=== PATIENT | female | born 1950 | race Caucasian/White ===

== ENCOUNTER 2024-09-24 07:55 | Day surgery (SDC) | payer MEDICARE, SELFPAY ==
[2024-09-22 09:57] VITALS: BMI 25.6
--- OUTSIDE RECORDS SUMMARY | 2024-09-24 07:58 | XMS_ITS | Data Portability ---
Author Organization [facility], [facility] Address [address] [place] [address] Care Team Providers Care Auto Technician Mechanic Name Role Phone LEEANN JUAN Mortgage Processor ARMIDA THIBODEAUX Plastic/Reconstructive Surgeon BARAK WANG OTHER EILEEN NAVA OTHER EHSAN ESPINOSA Primary Care Provider Assessment No assessment recorded. Plan of Treatment Reminders Order Date Submit Date Provider Last Modified By Organization Details Last Modified Time Details Appointments Medicare Return Wellness Visit 2024 10:30A M EHSAN ESPINOSA, [place] Not available Not available Not available Lab None recorded. Referral gastroent erologist referral - hx of diverticu litis December 2023, last colonosco py 2015 and unable to tolerate the prep, please eval and tx/ 2023 024 DIDIER Alexander MD, [address] [place] [address], [address], 06/12/2024 16:11:16 Procedures None recorded. Surgeries None recorded. Imaging None recorded. Medication Orders olmesarta n 5 mg tablet 2023 024 [email or web address] 9 [facility], [address] [place], [address], 05/14/2024 15:26:27 hydrochlo rothiazid e 25 mg tablet 2023 024 [email or web address] 9 [facility], [address] [place], [address], 08/21/2024 10:19:22 hydrochlo rothiazid e 12.5 mg tablet 2024 025 DIDIER [facility], [address] [place], [address], 08/21/2024 10:12:58 simvastat in 20 mg tablet 2024 025 [place] [facility], [address] [place], [address], 08/21/2024 10:12:58 Patient TargetsNo targets recorded. Patient Instructions Encounter Date Encounter Id Patient Instructions Last Modified By Organization Details Last Modified Time 01/31/2024 [id number] [facility] serves as the focal point for all health care services the patient needs. [email or web address] Not available 01/31/2024 10:02:40 05/01/2024 [id number] I am aware of the inpatient facility discharge medications, the medication list above has been reconciled with those medications and reflects my understanding of an up to date medication list for this patient. [email or web address] Not available 05/01/2024 08:32:26 Reason for Referral Utility Operator Referral for Diverticulitis of colon hx of diverticulitis December 2023, last colonoscopy 2015 and unable to tolerate the prep, please eval and tx/ Referring Physician: Abby Sales, Family Medicine, Encounter Date: 01/31/2024 Results Created Date Observation Date Name Description Value Unit Range Abnormal Flag Note LastModifiedBy Organization Detail LastModifiedTime 01/21/2001/21/2024 BASIC METAB OLIC PANEL glucose 112 mg/dL 70-100 high Not Available [address], [address], 01/21/2024 12:04:33 01/21/20 24 01/21/2024 BASIC METAB OLIC PANEL BUN 14 mg/dL 7-18 Not Available [address], [address], 01/21/2024 12:04:33 01/21/20 24 01/21/2024 BASIC METAB OLIC PANEL creatinine 1.0 mg/dL 0.8-1. 3 Not Available [address], [address], 01/21/2024 12:04:33 01/21/20 24 01/21/2024 BASIC METAB OLIC PANEL B/C 14.0 ratio Not Available [address], [address], 01/21/2024 12:04:33 01/21/20 24 01/21/2024 BASIC METAB OLIC PANEL GFR >=60ML /MIN mL/mi n normal >=60m L/min - Gill l or midly reduc ed <60mL /min- Decre ased kidne y funct ion <15mL /min - Kidne y failu re [facility] calcu lates estim ated Glome rular Filtr ation Rate (eGFR ) using the Chron ic Kidne y Disea se Epide miolo gy Colla borat ion (CKD- EPI) Equat ion (Danyell sosa et. al 2020) as recom gordo d by the Natio nal Kidne y Found ation . eGFR is based on age, serum creat inine , and sex. CKD-E PI does not calcu late eGFR by race, does not apply to child benito (age <18 years ), and shoul d not be used in pregn lorrie. Not Available [address], [address], 01/21/2024 12:04:33 01/21/20 24 01/21/2024 BASIC METAB OLIC PANEL sodium 138 mmol/ L 136-14 5 Not Available [address], [address], 01/21/2024 12:04:33 01/21/20 24 01/21/2024 BASIC METAB OLIC PANEL potassium 3.9 mmol/ L 3.5-5. 1 Not Available [address], [address], 01/21/2024 12:04:33 01/21/20 24 01/21/2024 BASIC METAB OLIC PANEL chloride 98 mmol/ L 96-107 Not Available [address], [address], 01/21/2024 12:04:33 01/21/20 24 01/21/2024 BASIC METAB OLIC PANEL anion gap 12.6 5.0-15 .0 Not Available [address], [address], 01/21/2024 12:04:33 01/21/20 24 01/21/2024 BASIC METAB OLIC PANEL CO2 27 mmol/ L 21-32 Not Available [address], [address], 01/21/2024 12:04:33 01/21/20 24 01/21/2024 BASIC METAB OLIC PANEL calcium 9.5 mg/dL 8.5-10 .3 Not Available [address], [address], 01/21/2024 12:04:33 01/21/20 24 01/21/2024 LIPID PANEL cholesterol 167 mg/dL <200 mg/dl Kristyn able 200-2 39 mg/dl Borde rline High >240 mg/dl High Not Available [address], [address], 01/21/2024 12:04:35 01/21/20 24 01/21/2024 LIPID PANEL triglyceride s 61 mg/dL <150 mg/dL Gill l 150-1 99 mg/dL Borde rline High 200-4 99 mg/dL High >500 mg/dL Very High Not Available [address], [address], 01/21/2024 12:04:35 01/21/20 24 01/21/2024 LIPID PANEL direct HDL 82 mg/dL <40 mg/dl - Major Risk for CHD >60 mg/dl - Negat jace Risk for CHD Not Available [address], [address], 01/21/2024 12:04:35 01/21/20 24 01/21/2024 DIREC T LDL direct LDL 65 mg/dL RISK CATEG ORY LDL GOAL _ CHD or CHD Risk Equiv alent s <100 mg/dl (10-y ear risk >20%) 2+ Risk Facto rs <130 mg/dl (10-y ear risk <= 20%) 0-1 Risk Facto r? <160 mg/dl ? Almos t all peopl e with 0-1 risk facto r have a 10 year risk <10%, thus 10 year risk asses ment in peopl e with 0-1 risk facto r is not neces rober. Not Available [address], [place], [address], 01/21/2024 12:04:36 04/17/20 24 04/22/2024 ANATO AIDA PATHO LOGY path report [facility] [address] [facility] [place] [address] Lab Direc tor: Brianda galeas MD Surgi joseph Patho logy Repor t Acces raisa #: [id number] FINAL PATHO LOGIC DIAGN OSIS: SIGMO ID COLON , COLEC NATASHA: Diver ticul osis with acute diver ticul itis. Marke d acute seros itis. Megan ctron icall y Filomena d Out By Lumin kurtis maradiaga MD By his/h er noemy gandhi above , the patho logis t guevara alexis as [facility] the Final Diagn osis certi fies that he/sh e has perso naty revie wed this case and confi rmed or corre cted the diagn osis. [facility] Free air SPECI MENS SUBMI TTED: A: SIGMO ID COLON , COLEC NATASHA GROSS DESCR IPTIO N SIGMO ID COLON , COLEC NATASHA: Recei debi in forma tae is a 11.7 cm in lengt h segme nt of large bowel with surro undin g peric olic fat. The seros a is gold h, levine and exhib its shagg y dull membr anous adhes ions and wallace- white fibro purul ent exuda te as well as levine-r ed hyper emic membr anous tissu e. The speci men is opene d to revea l numer ous scatt ered diver ticul a. The thick ness of the bowel wall varie s from 0.5 cm up to 0.7 cm. The colon ic circu mfere nce varie s from 3.4 cm up to 3.9 cm. The remai pamela colon ic mucos a is glist ening and levine-p ink with no aster s ident ified gross ly. Repre senta tive secti ons are submi tted as follo ws: A1-A4 : Repre senta tive secti ons of diver ticul a A5: Repre senta tive secti ons of levine-r ed hyper emic membr anous adhes ions Gross ed by: Francisco reddy, MHS, PA( CP) LT 024 Gross ing Staff : [id number] Sharri mendez Name: HAYES WEST RA : [id number] (Age: 73) Sex: F 4 Insti tutio n: [facility] Locat ion: [facility] ST2 Date of Opera tion: 2023 Date of Acces raisa: 2023 Repor cele: 024 13:53 Resul ts To: Eileen orlando MD, BA Megan Aponte MD, BS Not Available [facility] (Outpatient) [address] [place], [address], 04/22/2024 14:50:43 08/14/20 24 08/14/2024 BASIC METAB OLIC PANEL glucose 98 mg/dL 70-100 Not Available [address], [address], 08/14/2024 10:54:30 08/14/20 24 08/14/2024 BASIC METAB OLIC PANEL BUN 20 mg/dL 7-18 high Not Available [address], [address], 08/14/2024 10:54:30 08/14/20 24 08/14/2024 BASIC METAB OLIC PANEL creatinine 1.1 mg/dL 0.8-1. 3 Not Available [address], [address], 08/14/2024 10:54:30 08/14/20 24 08/14/2024 BASIC METAB OLIC PANEL B/C 18.2 ratio Not Available [address], [address], 08/14/2024 10:54:30 08/14/20 24 08/14/2024 BASIC METAB OLIC PANEL GFR 53.7 mL/mi n abnormal >=60m L/min - Gill l or midly reduc ed <60mL /min- Decre ased kidne y funct ion <15mL /min - Kidne y failu re [facility] calcu lates estim ated Glome rular Filtr ation Rate (eGFR ) using the Chron ic Kidne y Disea se Epide miolo gy Colla borat ion (CKD- EPI) Equat ion (Danyell r et. al 2020) as recom gordo d by the Natio nal Kidne y Found ation . eGFR is based on age, serum creat inine , and sex. CKD-E PI does not calcu late eGFR by race, does not apply to child benito (age <18 years ), and shoul d not be used in pregn lorrie. Not Available [address], [address], 08/14/2024 10:54:30 08/14/20 24 08/14/2024 BASIC METAB OLIC PANEL sodium 144 mmol/ L 136-14 5 Not Available [address], [address], 08/14/2024 10:54:30 08/14/20 24 08/14/2024 BASIC METAB OLIC PANEL potassium 4.7 mmol/ L 3.5-5. 1 Not Available [address], [address], 08/14/2024 10:54:30 08/14/20 24 08/14/2024 BASIC METAB OLIC PANEL chloride 106 mmol/ L 96-107 Not Available [address], [address], 08/14/2024 10:54:30 08/14/20 24 08/14/2024 BASIC METAB OLIC PANEL anion gap 10.3 5.0-15 .0 Not Available [address], [address], 08/14/2024 10:54:30 08/14/20 24 08/14/2024 BASIC METAB OLIC PANEL CO2 28 mmol/ L 21-32 Not Available [address], [address], 08/14/2024 10:54:30 08/14/20 24 08/14/2024 BASIC METAB OLIC PANEL calcium 9.4 mg/dL 8.5-10 .3 Not Available [address], [address], 08/14/2024 10:54:30 08/14/20 24 08/14/2024 LIPID PANEL cholesterol 197 mg/dL <200 mg/dl Kristyn able 200-2 39 mg/dl Borde rline High >240 mg/dl High Not Available [address], [address], 08/14/2024 10:54:32 08/14/20 24 08/14/2024 LIPID PANEL triglyceride s 62 mg/dL <150 mg/dL Gill l 150-1 99 mg/dL Borde rline High 200-4 99 mg/dL High >500 mg/dL Very High Not Available [address], [address], 08/14/2024 10:54:32 08/14/20 24 08/14/2024 LIPID PANEL direct HDL 94 mg/dL <40 mg/dl - Major Risk for CHD >60 mg/dl - Negat jace Risk for CHD Not Available [address], [address], 08/14/2024 10:54:32 08/14/20 24 08/14/2024 LDL - CALCU LATED LDL - calculated 91 RISK CATEG ORY LDL GOAL _ CHD or CHD Risk Equiv alent s <100 mg/dl (10-y ear risk >20%) 2+ Risk Facto rs <130 mg/dl (10-y ear risk <= 20%) 0-1 Risk Facto r? <160 mg/dl ? Almos t all peopl e with 0-1 risk facto r have a 10 year risk <10%, thus 10 year risk asses ment in peopl e with 0-1 risk facto r is not morgan rober. Not Available [address], [address], 08/14/2024 10:54:33 01/03/20 24 01/03/2024 CT, angio gram, chest , w/ contr ast No observ ation record ed. [email or web address] Not Available 05/2024 13:19:45 01/08/20 24 01/08/2024 nc100 (tech order only) nc stres s test with nucle ar imagi ng Table format ting from the origin al result was not includ ed. Images from the origin al result were not includ ed. Result Report Garcia t Name: KyungTalita isbell Class: Outpat ient Techno logist : Ehsan Mcgovern ng Prov: Lan Durham, Ila gutierrez Primar y Care Physic kelsie: Ila Durham Diagno sis: Chest pain, unspec ified type [R07.9 (ICD-1 0-CM)] Proced ure(s) Perfor med: NC Stress Result for Nuclea r Stress Test Exam Date and Time: 2023 10:08 AM Access ion #: [id number] Result Status : Final NC Stress Result for Nuclea r Stress Test: Garcia ashton Commun icatio n Not Releas ed Not seen Height : 5' 4 (2023) Weight : 159 lb (2023) Reason For Exam * Outsid e Radiol ogy Order Associ ated Diagno ses Chest pain, unspec ified type [R07.9 ] Stress Test Findin gs ECG Report : Testin g perfor med as a pharma cologi c study due to patihi ashton's report ed inabil ity to ambula te on treadm ill due to unstea diness 0.4 mg Regade noson (azeem can) given IV push over 10 second s as per protoc ol immedi ately follow ed by inject ion of Tc99m Sestam ibi by Rosalee nuclea r techno logist . 1. EKG - Baseli ne EKG showed sinus rhythm withou t any signif icant ST or T wave abnorm ality. Follow ing admini strati on of lexisc an there were no ECG change s meetin g criter ia for ischem ia 2. SYMPTO MS -Follo wing Lexisc an patien daisha develo ped 4/10 chest pressu re which she stated felt the same as her exerti onal sympto ms of concer n, this resolv ed sponta neousl y in a few minute s. Later patien t did develo p lighth eadedn ess in late recove ry period which resolv ed follow ing admini strati on of aminop hyllin e. 3. PHYSIO LOGY - Restin g HR was 80 bpm. After Lexisc an inject ion, HR 115 bpm. Blood pressu re: 124/78 at rest, 124/78 follow ing admini strati on of lexisc an, and 117/70 on discha rge from stress lab. 4. ARRHYT HMIAS - Occasi onal isolat ed PACs Conclu raisa - ECG portio n of nuclea r stress test withou t ECG change s meetin g criter ia for ischem ia. She did have sympto ms kimberly santiago for angina . Nuclea r images pendin g and will be report ed mis quarles. See attach ed stress report for full detail sDelphine Fery, CRYPTOGRAPHIC MACHINE OPERATOR with Dr. Pamela younger Stress Findin gs The restin g heart rate was 80 BPM. The restin g BP was 115/70 mmHg. A peak heart rate of 110 BPM was achiev ed. Respon se to Stress The patien t exerci sed for minute s and second s, achiev ing 1.0 METS at peak exerci se. Baseli ne blood pressu re was 115/70 mmHg, and baseli ne heart rate was 80 bpm. The patien t achiev ed a peak heart rate of 110 bpm, which is% of their maximu m predic cele heart rate. Interp retati on Summar y Impres raisa: Negati ve ECG portio n of the stress test for revers ible ischem ia. Await nuclea r images . Stress Measur ements Max Stress Vitals Max BP Systol ic 140 mmHg Max BP Diasto lic 70 mmHg Stress Measur ements Restin g Vitals Restin g HR 80 BPM Restin g BP Systol ic 115 mmHg Restin g BP Diasto lic 70 mmHg Peak Stress Vitals Peak HR 110 BPM Max Stress Vitals Max HR 115 BPM Max BP Systol ic 140 mmHg Max BP Diasto lic 70 mmHg Exerci se Data Peak METS 1 METS Stress Vitals ( 9:06 AM-- 10:08 AM) Stress Test Row Name 09:16: 58 09:39: 42 09:40: 42 09:41: 42 09:54: 03 Phase of Stress Test ? Infusi on Infusi on Post Infusi on Post Infusi on HR 86 bpm 79 bpm 110 bpm 114 bpm ? BP ? 124/78 ? 124/78 117/70 Stage ? Dose 1 Dose 1 ? ? Speed 0 mph 0 mph 0 mph 0 mph 0 mph METs ? 1 METs 1 METs 1 METs 1 METs Time in Stage 00:00: 00 00:00: 00 00:01: 00 00:01: 00 00:12: 21 Elevat ion 0 % 0 % 0 % 0 % 0 % Signed Electr onical ly signed by Koffi Tapia DO on 4 at 1029 EDT Balaji blair Physic joseph Physic kelsie Role Shante, Jace Armstrong, DIRECTOR OF COUNSELING Koffi Manrique DO Attend ing Cardio logist KHARME N LAN DEL CASTIL LO KHARME N LAN DEL CASTIL LO KHARME N LAN DEL CASTIL LO [facility] [address] [place] [address], [address], 01/09/2024 13:39:42 01/08/20 24 01/08/2024 nucle ar stres s test No observ ation record ed. [address], [address], 01/09/2024 13:39:43 01/08/20 24 01/08/2024 nc myoca rdial perfu raisa pharm acolo gic stres s multi ple COMPAR ESTHER: None HISTOR Y: Chest pain DOSE: 10.2 mCi of techne tium 99m sestam ibi intrav enousl y at rest and 32.4 mCi of techne tium 99m sestam ibi subseq uently in the day during pharma cologi c stress . SPECT images were obtain ed, gated at stress . FINDIN GS: Left ventri cular cavity size is felt to be within normal limits . On the stress portio n of examin ation there is mildly to modera tely dimini shed tracer uptake in the anteri or wall and high septum extend ing from the midpor tion to the apical portio n of the ventri chucky which improv es but does not appear to comple tely normal ize on the rest images . Tracer distri bution throug hout the remain saul of the left ventri cular myocar dium is felt to be essent ially physio logic and unchan ged betwee n stress and rest. No focal abnorm ality of myocar dial thicke pamela was identi fied. The LVEF was calcul ated at 88% and the TID ratio at 1.07. IMPRES RAISA: Mild to modera te anteri or wall ischem ia consis tent with an LAD territ ory lesion , possib ly associ ated with an elemen t of underl cory scar which could be correl ated with any previo us known histor y of myocar dial infarc tion. The LVEF was calcul ated at greate r than 75%. POS CCDRAD BRDADM 04 Electr onical ly Signed by: Nathaniel Son on 024 12:36 PM Interp reted by: Nathaniel Son MD Signed by: Nathaniel Son MD 4 Final result Rest 10.2 mCi Sestam ibi Stress 32.4 mCi Sestam ibi Lexisc an KHARME N LAN DEL CASTIL LO KHARME N LAN DEL CASTIL LO KHARME N LAN DEL CASTIL LO [facility] [address] [place] [address], [address], 01/09/2024 13:39:43 01/08/20 24 01/08/2024 pharm acolo gic nucle ar stres s test No observ ation record ed. [address], [address], 01/09/2024 13:39:44 04/14/20 24 04/14/2024 CT, abdom en + pelvi s, w/ contr ast No observ ation record ed. [email or web address] [facility] (Emergency Room) [address] [place] [address], [address], 04/14/2024 20:12:52 Result Notes None recorded. Problems Name Problem SNOMED Code Status Onset Date Resolution Date Notes Provider Name and Address Organization Details Recorded Time Knee pain Active Archana Chau PA-C [address] [place], [place] [address], [address], [facility] 6 09:32:12 History of bilatera l mastecto my 854777142 Active 2019 Abby Sales MD [address] [facility] [place], [address], [facility] 0 12:42:40 Visual disturba nce 74606781 Active 2022 [facility] D/C Yasemin bray, [facility] 3 16:04:53 Ophthalm ic migraine 58508052 Active 2022 Abby Sales MD [address] [place] [address] [place], [address], [facility] 3 09:03:48 Hyperlip idemia 58644484 Active 2023 Abby Sales MD [address] [place] [address] [place], [address], [facility] 4 10:01:35 Sigmoid colectom y Active 2023 [facility], Dr.Michae hampton Due to diverticu litis Yasemin bray, [facility] 4 12:29:20 History of sigmoid colectom y 965794375 Active 2023 Abby Sales MD [address] [place] [address] [place], [address], [facility] 4 14:06:03 Mixed hyperlip idemia 493645119 Active 2005 Archana Chau PA-C [address] [place], [place] [address], [address], [facility] 6 09:32:12 Nervous system symptoms Completed 200307/05/2009 Archana Chau PA-C [address] [place], [place] [address], [address], [facility] 6 09:32:12 Cough 16908045 Completed 07/09/2013 Archana Chau PA-C [address] [place], [place] [address], [address], [facility] 6 09:32:12 Essentia l hyperten raisa 23900012 Active Archana Chau PA-C [address] [place], [place] [address], [address], [facility] 6 09:32:12 Hordeolu m 869835568 Completed 200407/05/2009 Archana Chau PA-C [address] [place], [place] [address], [address], [facility] 6 09:32:12 Urinary tract infectio us disease 37258697 Completed 07/09/2013 Archana Chau PA-C [address] [place], [place] [address], [address], [facility] 6 09:32:12 Current tear of lateral cartilag e AND/OR meniscus of knee Active 2006 Archana Chau PA-C [address] [place], [place] [address], [address], [facility] 6 09:32:12 Acute cystitis 03900826 Completed 200207/05/2009 Archana Chau PA-C [address] [place], [place] [address], [address], [facility] 6 09:32:12 Primary malignan t 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 88003628 Active 2002 Archana Chau PA-C [address] [place], [place] [address], [address], [facility] 6 09:32:11 Vitamin D deficien cy 73310636 Active Archana Chau PA-C [address] [place], [place] [address], [address], [facility] 6 09:32:11 Pure hypercho lesterol emia 916557429 Completed 200207/05/2009 Archana Chau PA-C [address] [place], [place] [address], [address], [facility] 6 09:32:12 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 Archana Chau PA-C [address] [place], [place] [address], [address], [facility] 6 09:32:12 Chalazio n 2177562 Completed 200507/05/2009 Archana Chau PA-C [address] [place], [place] [address], [address], [facility] 6 09:32:12 Disorder of skeletal system 65961903 Completed 200407/09/2013 Archana Chau PA-C [address] [place] [address] [place], [address], [facility] 6 09:32:12 Neoplasm of uncertai n behavior of skin 72692249 Completed 200407/09/2013 Archana Chau PA-C [address] [place], [place] [address], [address], [facility] 6 09:32:11 Lyme disease 08987959 Active 2005 Archana Chau PA-C [address] [place], [place] [address], [address], [facility] 6 09:32:11 Abdomina l pain 99270361 Completed 07/09/2013 Archana Chau PA-C [address] [place], [place] [address], [address], [facility] 6 09:32:12 Mammogra phy abnormal 503187321 Active 2005 Archana Chau PA-C [address] [place], [place] [address], [address], [facility] 6 09:32:12 Knee pain Completed 200607/09/2013 Archana Chau PA-C [address] [place], [place] [address], [address], [facility] 6 09:32:12 On examinat ion - a rash Completed 200107/05/2009 Archana Chau PA-C [address] [place], [place] [address], [address], [facility] 6 09:32:12 Menopaus al symptom 59629867 Completed 200307/09/2013 Archana Chau PA-C [address] [place], [place] [address], [address], [facility] 6 09:32:12 Osteocho ndropath y 73058338 Active Archana Chau PA-C [address] [place] [address] [place], [address], [facility] 6 09:32:12 Low back pain 136959244 Active 2003 Archana Chau PA-C [address] [place] [address] [place], [address], [facility] 6 09:32:12 Malaise and fatigue 627151616 Completed 200107/05/2009 Archana Chau PA-C [address] [place] [address] [place], [address], [facility] 6 09:32:12 Problem Notes None recorded. Procedures Surgical History Date Name Laterality Status Provider Name and Address Organization Details Recorded Time 024 Post hospital/SNF follow-up/Transit ional Care completed Machelle Odell MA [facility] 05/01/2024 08:32:26 024 excision of colon completed Abby Sales MD [address] [place] [address], [phone], [facility] 04/22/2024 19:35:48 024 [id number] completed Abby Sales MD [address] [place] [address], [phone], [facility] 01/31/2024 10:02:40 024 Asthma Control Test (12 + years old) completed Machelle Odell MA [facility] 01/31/2024 07:55:42 023 Medicare Wellness Visit completed Machelle Odell MA [facility] 07/26/2023 08:21:30 023 Asthma Control Test (12 + years old) completed Machelle Odell MA [facility] 07/26/2023 08:21:40 023 Post hospital/SNF follow-up/Transit ional Care completed Machelle Odell MA [facility] 04/24/2023 08:13:53 022 Medicare Wellness Visit completed Machelle Odell MA [facility] 07/03/2022 16:15:09 022 Alcohol use screening completed Machelle Odell MA [facility] 07/03/2022 16:15:09 022 Cardiovascular disease risk reduction counseling completed Machelle Odell MA [facility] 07/03/2022 16:15:09 Asthma Control Test (12 + years old) completed Machelle Odell [facility] 07/24/2022 09:58:32 022 Skin Tag Removal (up to 15) completed Abby Sales MD [address] [place] [address], [phone], [facility] 11/12/2021 13:46:06 Medicare Wellness Visit completed Edyta Chu [facility] 04/15/2021 16:55:03 021 prevention-cardio vascular risk reduction counseling completed Edyta Chu [facility] 04/15/2021 16:55:03 021 prevention-annual alcohol misuse screening completed Edyta Chu [facility] 04/15/2021 16:55:03 021 Advanced Care Planning completed Abby Sales MD [address] [place] [address], [phone], [facility] 04/20/2021 10:56:23 020 Asthma Control Test (12 + years old) completed Lluvia Henderson [facility] 08/02/2020 09:10:19 020 Medicare Wellness Visit completed Suzanne Haile [facility] 02/03/2020 10:22:14 020 prevention-annual alcohol misuse screening completed Suzanne Haile [facility] 02/03/2020 10:22:14 020 Asthma Control Test (12 + years old) completed Lluvia Henderson [facility] 02/03/2020 11:53:52 020 Advanced Care Planning completed Abby Sales MD [address] [place], [address], [facility] 02/03/2020 12:46:05 019 Medicare Wellness Visit completed Priya Addison Jordan [facility] 01/14/2019 08:40:49 019 Asthma Control Test (12 + years old) completed Priya Addison [facility] 01/14/2019 08:46:53 018 Medicare Wellness Visit completed Grazyna Hunt [facility] 11/06/2017 11:03:14 018 Asthma Control Test (12 + years old) completed Abby Sales MD [address] [place], [address], [facility] 11/06/2017 17:04:05 018 Medicare Risk for Falls Screen completed Grazyna Hunt [facility] 11/06/2017 11:05:22 018 Suture/staple Removal completed ERWIN Parra [address] [place], [phone], [facility] 09/04/2017 16:02:29 018 Excision completed ERWIN Parra [address] [place], [address], [facility] 09/05/2017 09:15:03 017 POC Flu Testing completed Clara Verma MA [facility] 09/16/2016 09:43:32 016 Jonathan - Colonoscopy completed Rene Castillo MD [address] [place], [phone], [facility] 12/06/2015 11:59:45 016 Colonoscopy completed Abby Sales MD [address] [place] [address], [phone], [facility] 06/30/2016 10:12:01 016 Asthma Control Test (12 + years old) completed Aicha Cortes [facility] 10/05/2015 10:09:14 013 Asthma Control Test (12 + years old) completed Karen Nichols CMA [facility] 11/11/2012 16:39:41 007 Total Mastectomy completed Melody Lopez [facility] 12/23/2015 11:25:02 007 Mastectomy completed Not Available [facility] 06:06:16 Tonsillectomy completed Patti Barry MD [address] [place] [address], [phone], [facility] 02/23/2014 11:45:23 Imaging Results Imaging Date Name Status LastModified by Organization Details LastModified Time 01/03/2024 CT, angiogram, chest, w/ contrast completed [facility] Information not available 02/27/2024 13:19:45 01/08/2024 [id number] (tech order only) nc stress test with nuclear imaging completed [facility] [address] [place] [address], [id number], 01/09/2024 13:39:42 01/08/2024 nuclear stress test completed [address], [address], 01/09/2024 13:39:43 01/08/2024 nc myocardial perfusion pharmacologic stress multiple completed [facility] [address] [place] [address], [address], 01/09/2024 13:39:43 01/08/2024 pharmacologic nuclear stress test completed [address], [address], 01/09/2024 13:39:44 04/14/2024 CT, abdomen + pelvis, w/ contrast completed vaishnavi [facility] (Emergency Room) [address] [place] [address], [id number], 04/14/2024 20:12:52 Procedure Notes None recorded. Medical Equipment None Reported. Allergies Allergen ID Allergen Name Allergen Category Reaction Reaction Severity Criticality Documentation Date Start Date Code Code System Note Provider Name and Address Organization Details Recorded Time [id number] amoxicill in medicatio n vomiting severe Not available 01/31/2024 723 RxNorm Amoxi cilli n clavu lanat e 875-1 25mg STEFF Garcia [facility] 4 09:20:48 93670 Bactrim medicatio n other mild Not available 12/13/20102010 87688 9 RxNorm sore, red tongu e Not Available [facility] 1 06:05:41 Medications Name Sig Start Date Stop Date Status Note LastModified by Organization Details LastModified Time hydrochlo rothiazid e 25 mg tabs active Not Available Not Available Not Available proair hfa 108 (90 base) mcg/act aers active Not Available Not Available Not Available atorvasta tin 80 mg tablet TAKE 1 TABLET BY MOUTH ONCE DAILY 07/26 completed Not Available Not Available Not Available erythromy gagan 500 mg tablet active Not Available Not Available No t Available meclizine 12.5 mg tablet Take 2 tablets 3 times a day by oral route for 7 days. 07/01 completed Not Available Not Available Not Available metronida zole 500 mg tablet TAKE 1 TABLET BY MOUTH THREE TIMES DAILY FOR 14 DAYS 05/14 completed Not Available Not Available Not Available clopidogr el 75 mg tablet TAKE 1 TABLET BY MOUTH ONCE DAILY FOR 20 DAYS THEN DISCONTI NUE 12/27 completed Not Available Not Available Not Available ciproflox acin 250 mg tablet Take 1 tablet every 12 hours by oral route for 5 days. 07/25 completed Not Available Not Available Not Available ciproflox acin 500 mg tablet TAKE 1 TABLET BY MOUTH TWICE DAILY 05/14 completed Not Available Not Available Not Available doxycycli ne monohydra te 100 mg tablet Take 2 tablets every day by oral route for 1 day. 03/27 completed Not Available Not Available Not Available benzonata te 100 mg capsule 11/10 completed Not Available Not Available Not Available simvastat in 20 mg tablet Take 1 tablet every day by oral route for 90 days. active Not Available Not Available No t Available docusate sodium 100 mg capsule TAKE 2 CAPSULES BY MOUTH TWICE DAILY 08/21 completed Not Available Not Available Not Available hydrochlo rothiazid e 25 mg tablet TAKE 1 TABLET BY MOUTH ONCE DAILY 08/21 completed dose change Not Available Not Available Not Available ibuprofen 600 mg tablet TAKE 1 TABLET BY MOUTH THREE TIMES DAILY FOR 10 DAYS 07/06 completed PRN Not using 07/06/22 VIVIANA Not Available Not Available Not Available neomycin 500 mg tablet active Not Available Not Available Not Available ondansetr on 4 mg disintegr ating tablet DISSOLVE 1 TO 2 TABLETS IN MOUTH EVERY 8 HOURS NEEDED FOR NAUSEA AND VOMITING 01/30 completed Not Available Not Available Not Available doxycycli ne hyclate 100 mg tablet 06/30 completed Not Available Not Available Not Available amoxicill in 875 mg-potass ium clavulana te 125 mg tablet TAKE 1 TABLET BY MOUTH EVERY 8 HOURS FOR 10 DAYS FOR DIVERTIC ULITIS 01/30 completed Not Available Not Available Not Available Bactrim DS 800 mg-160 mg tablet Take 1 tablet every 12 hours by oral route for 5 days. 12/10 completed Not Available Not Available Not Available Tessalon Perle 100 mg capsule Take 1 capsule 3 times a day by oral route as needed for 5 days. 11/10 completed Not Available Not Available Not Available olmesarta n 5 mg tablet TAKE ONE TABLET BY MOUTH EVERY DAY FOR HYPERTEN RAISA active Not Available Not Available No t Available naloxone 1 mg/mL injection syringe USE UTD 11/06 completed Not Available Not Available Not Available Asprin Ec Low Dose 81 mg tablet,de layed release Take 1 tablet every day by oral route. 05/14 completed prn, per pt Not Available Not Available Not Available amoxicill in-potass ium clavulana te 1,000 mg-62.5 mg tablet,ex t.rel 12hr 01/16 completed Not Available Not Available Not Available Vitamin D3 25 mcg (1,000 unit) capsule Take 1 capsule by oral route. 01/14 completed Not Available Not Available Not Available cyclobenz aprine 5 mg tablet TAKE 1 TABLET BY MOUTH THREE TIMES DAILY FOR 7 DAYS 08/02 completed Currentl y not taking 07/25/19 LZ, Not taking 0 LZ Not Available Not Available Not Available Vitamin D2 400 unit capsule Take 1 capsule every day by oral route. 2008 active Not Available Not Available Not Avai lable Flovent HFA 110 mcg/actua tion aerosol inhaler Inhale 1 puff twice a day by inhalati on route for 30 days. 02/02 completed Not Available Not Available Not Available acetamino phen 325mg two tabs Q6 prn 2023 active [facility] D/C Not Available Not Available Not Avai lable metronida zole 500mg one TID 14 days 05/01 completed [facility] D/C Not Available Not Available Not Available Lactobaci llus one BID 08/21 completed [facility] D/C Not Available Not Available Not Available ciproflox acin 500mg BID for 14 days 05/01 completed [facility] D/C Not Available Not Available Not Available ProAir HFA 90 mcg/actua tion aerosol inhaler Inhale 2 puffs every 4 hours by inhalati on route as needed. 12/27 completed PRN Not Available Not Available Not Available hydrochlo rothiazid e 12.5 mg tablet Take 1 tablet every day by oral route for 90 days, for HTN. active Not Available Not Available No t Available Culturell e Digestive Health 10 billion cell-200 mg sprinkle capsule TAKE 1 CAPSULE BY MOUTH TWICE DAILY active Not Available Not Available No t Available GaviLyte- G 236 gram-22.7 4 gram-6.74 gram-5.86 gram oral solution 06/30 completed Not Available Not Available Not Available Vivotif 2 billion unit capsule,d elayed release 09/16 completed Not Available Not Available Not Available Afluria 2087-3315 (PF) 45 mcg(15 mcg x 3)/0.5 mL intramusc ular syringe inject 0.5 millilit er intramus cularly 06/30 completed Not Available Not Available Not Available Shingrix (PF) 50 mcg/0.5 mL intramusc ular suspensio n, kit PHARMACI ST ADMINIST ERED IMMUNIZA TION ADMINIST ERED AT TIME OF DISPENSI NG 06/09 completed Not Available Not Available Not Available Flublok Quad (PF) 180 mcg (45 mcg x 4)/0.5 mL IM syringe PHARMACI ST ADMINIST ERED IMMUNIZA TION ADMINIST ERED AT TIME OF DISPENSI NG 06/09 completed Not Available Not Available Not Available Paxlovid 300 mg (150 mg x 2)-100 mg tablets in a dose pack Take nirmatre lvir 300mg (150mg x 2 tabs) and ritonavi r 100mg (one tab) by mouth. All three tablets should be taken together twice a day for 5 days 01/22 completed Not Available Not Available Not Available Vitals Date Recorded Body height Body mass index (BMI) Body weight Heart rate Systolic blood pressure Diastolic blood pressure Provider Name and Address Organization Details Last Updated DateTime 4 161.29 cm 27.5 kg/m2 60801.5 9 g 76 /min 110 mm[Hg] 66 mm[Hg] Machelle Odell MA [facility] 4 09:24:09 Date Recorded Body height Body mass index (BMI) Body weight Heart rate Systolic blood pressure Diastolic blood pressure Systolic blood pressure Diastolic blood pressure Provider Name and Address Organization Details Last Updated DateTime 4 161.29 cm 26.7 kg/m2 13815.6 3 g 84 /min 140 mm[Hg] 76 mm[Hg] 140 mm[Hg] 74 mm[Hg] Machelle Odell MA [facility] 4 10:25:55 Date Recorded Systolic blood pressure Diastolic blood pressure Provider Name and Address Organization Details Last Updated DateTime 05/01/2024 126 mm[Hg] 64 mm[Hg] Abby Sales MD [address] [place] [address], [phone], [facility] 05/01/2024 10:40:29 Date Recorded Body height Body mass index (BMI) Body weight Oxygen saturation Oxygen saturation in Arterial blood by Pulse oximetry Heart rate Systolic blood pressure Diastolic blood pressure Provider Name and Address Organization Details Last Updated DateTime 4 161.29 cm 25.8 kg/m2 09425.3 7 g 98 % 98 % 88 /min 102 mm[Hg] 64 mm[Hg] Antionette Nunez CMA [facility] 4 14:52:32 Date Recorded Body height Body mass index (BMI) Body weight Heart rate Oxygen saturation Oxygen saturation in Arterial blood by Pulse oximetry Systolic blood pressure Diastolic blood pressure Provider Name and Address Organization Details Last Updated DateTime 4 161.29 cm 25.3 kg/m2 34280.8 9 g 83 /min 98 % 98 % 120 mm[Hg] 64 mm[Hg] Bishnu Jordan Brooks [facility] 4 13:33:16 Date Recorded Body height Heart rate Oxygen saturation Oxygen saturation in Arterial blood by Pulse oximetry Systolic blood pressure Diastolic blood pressure Provider Name and Address Organization Details Last Updated DateTime 5 161.29 cm 71 /min 98 % 98 % 118 mm[Hg] 68 mm[Hg] Antionette Nunez [facility] 5 09:59:13 Date Recorded Heart rate Oxygen saturation Oxygen saturation in Arterial blood by Pulse oximetry Systolic blood pressure Diastolic blood pressure Provider Name and Address Organization Details Last Updated DateTime 5 76 /min 97 % 97 % 118 mm[Hg] 72 mm[Hg] Syeda Ley RN [facility] 5 10:34:46 Date Recorded Systolic blood pressure Diastolic blood pressure Systolic blood pressure Diastolic blood pressure Provider Name and Address Organization Details Last Updated DateTime 02/12/2024 135 mm[Hg] 83 mm[Hg] 137 mm[Hg] 84 mm[Hg] [facility]40 Date Recorded Systolic blood pressure Diastolic blood pressure Provider Name and Address Organization Details Last Updated DateTime 04/23/2024 170 mm[Hg] 92 mm[Hg] Priya Addison [facility] 04/23/2024 11:54:01 Date Recorded Systolic blood pressure Diastolic blood pressure Provider Name and Address Organization Details Last Updated DateTime 05/05/2024 136 mm[Hg] 84 mm[Hg] Yasemin King [facility] 05/05/2024 09:48:54 Social History Question Answer Notes LastModified by Organizat ion Details LastModified Time Tobacco Smoking Status Never Smoker Not Available [facility] 07/06/2011 04:52:19 Do You Have An Advance Directive? No Information not available 07/06/2011 What Is Your Level Of Alcohol Consumption? None [email or web address] Information not available 11/11/2012 What Is Your Level Of Caffeine Consumption? Occasional 2-3 Cups Daily [email or web address] Information not available 05/14/2024 How Much Tobacco Do You Chew? None Information not available 07/06/2011 What Type Of Diet Are You Following? REGULAR [email or web address] Information not available 05/16/2012 Which Illicit Or Recreational Drugs Have You Used? None [email or web address] Information not available 03/16/2015 Do You Or Have You Ever Used E-cigarettes Or Vape? 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 0 Information not available 03/16/2015 Are There Any Guns Present In Your Home? No Information not available 03/16/2015 Live Alone Or With Others? With Others With And 2 Young Adult Sons Information not available 03/16/2015 Does The Patient Have Difficulty Speaking Lebanese? No Information not available 03/16/2015 Does The Patient Have Difficulty Reading Lebanese? No Information not available 03/16/2015 Patient Has Health Care Proxy Signed And In Chart Yes , Nick Gross Information not available 11/06/2017 MOLST Form Signed And In Chart 11/09/2017 [email or web address] Information not available 07/03/2018 CCM Consent Discussion 07/01/2018 [email or web address] Information not available 07/02/2018 Marital Status [id number] In formation not available 07/06/2011 Mosquito Repellent Used Routinely No Information not available 03/16/2015 What Was The Date Of Your Most Recent Tobacco Screening? 07/07/2024 [email or web address] Information not available 07/07/2024 How Many Children Do You Have? 2 Grandson - 1.5 Y/o Information not available 11/06/2017 Do You Use Your Seat Belt Or Car Seat Routinely? Yes Information not available 11/21/2023 Seat Belts Used Routinely Yes Information not available 03/16/2015 Are You Sexually Active? Yes [email or web address] Information not available 11/06/2017 Smoke Alarm In Home Yes Information not available 03/16/2015 Do You Have Smoke And Carbon Monoxide Detectors In Your Home? Yes Information not available 11/21/2023 Are You Passively Exposed To Smoke? No Information not available 11/21/2023 Do You Or Have You Ever Used Smokeless Tobacco? Never Used Smokeless Tobacco Information not available 07/25/2019 How Much Tobacco Do You Smoke? No Information not available 08/02/2020 General Stress Level Low Low- Medium Due To Pandemic Information not available 02/03/2020 Do You Use Sunscreen Routinely? Yes Information not available 03/16/2015 Do You Or Have You Ever Used Any Other Forms Of Tobacco Or Nicotine? No [email or web address] Information not available 07/24/2022 Sex: Female Functional Status None recorded. Mental Status None recorded. Family History Relationship Description Onset Age of this Age Resolved Age Notes LastModified by Organization Details LastModified Time Sister Malignant tumor of breast 50 55 2013 [email or web address] illo Not available 07/26/2023 09:14:34 Father Malignant tumor of lung 71 72 [email or web address] Not available 2014 12:27:04 Mother Essential hypertension [email or web address] Not available 10:29:42 Mother Alzheimer's disease 85 [email or web address] Not available 2015 10:29:43 Paternal Grandmother Malignant tumor of breast [email or web address] illo Not available 06/30/2016 10:05:18 Brother Malignant tumor of lung 69 2010 [email or web address] illo Not available 07/26/2023 09:14:08 Notes:no significant MIs, DM . No FH colon, ovarian, nor uterine CA. Medical History Condition Response EYE Y Diverticulosis Y Breast Cancer Y Allergic Rhinitis Y Hyperlipidemia Y Osteopenia Y Diverticulitis Y Hypertension Y Asthma Y Gynecological History Statement/Question Response History of Abnormal Pap N LMP Obstetrics History GPAL:G 0 P 0 0 0 0 Immunizations Vaccine Type Date Status Note Provider Piero thomas and Address Organization Details Recorded Time Hep A, unspecified formulation 1 completed Not Available [facility] 06/29/2022 21:11:14 typhoid, unspecified formulation 1 completed Not Available [facility] 06/29/2022 21:11:14 Td(adult) unspecified formulation 4 completed Not Available [facility] 06/29/2022 21:11:14 Influenza, split virus, trivalent, preservative 2 completed Not Available [facility] 09/06/2019 02:18:35 Tdap 3 completed Not Available [facility] 09/06/2019 02:25:38 zoster live 3 completed Not Available [facility] 09/06/2019 02:31:06 pneumococcal polysaccharide PPV23 5 completed Not Available [facility] 09/06/2019 02:26:06 Hep A, adult 5 completed Not Available [facility] 09/06/2019 02:26:36 Influenza, split virus, quadrivalent, PF 5 completed Not Available [facility] 09/06/2019 02:31:44 Influenza, split virus, quadrivalent, PF 7 completed Not Available [facility] 09/06/2019 02:37:12 Pneumococcal conjugate PCV 13 8 completed Not Available [facility] 09/06/2019 02:22:32 Influenza, high-dose, trivalent, PF 8 completed Not Available [facility] 09/06/2019 02:23:29 influenza, unspecified formulation 6 completed Not Available [facility] 06/29/2022 21:11:14 Influenza, high-dose, quadrivalent, PF 0 completed STEFF Schafer [facility] 06/09/2020 11:12:53 zoster recombinant 9 completed [facility]23 10:12:26 pneumococcal polysaccharide PPV23 1 completed [facility] 04/18/2021 16:03:32 Influenza, high-dose, quadrivalent, PF 1 completed Chelsi Sands LPN [facility] 06/07/2021 09:03:43 Influenza, high-dose, quadrivalent, PF 2 completed Abby Sales MD [address] [place] [address], [phone], [facility] 07/24/2022 10:26:47 Td (adult), 2 Lf tetanus toxoid, preservative free, adsorbed 3 completed Abby Sales MD [address] [place] [address], [phone], [facility] 01/22/2023 10:37:29 Influenza, high-dose, quadrivalent, PF 3 completed [facility] 05/18/2023 10:15:18 Influenza, split virus, trivalent, preservative 0 completed Not Available [facility] 09/06/2019 02:39:38 COVID-19, mRNA, LNP-S, PF, 30 mcg/0.3 mL dose 1 completed Not Available [facility] 06/29/2022 21:11:14 COVID-19, mRNA, LNP-S, PF, 30 mcg/0.3 mL dose 1 completed Not Available [facility] 06/29/2022 21:11:14 Influenza, high-dose, trivalent, PF 4 completed Jud Molina. [address] [place] [address], [phone], [facility] 07/07/2024 13:41:18 COVID-19, mRNA, LNP-S, PF, 30 mcg/0.3 mL dose 1 completed [facility] 12/28/2023 10:12:26 COVID-19, mRNA, LNP-S, bivalent, PF, 30 mcg/0.3 mL dose 2 completed [facility] 12/28/2023 10:12:26 RSV, recombinant, protein subunit RSVpreF, adjuvant reconstituted, 0.5 mL, PF 3 completed [facility] 12/28/2023 10:12:26 COVID-19, mRNA, LNP-S, PF, 100 mcg/0.5mL dose or 50 mcg/0.25mL dose 3 completed Machelle Odell [facility] 07/02/2023 14:18:32 Influenza, split virus, quadrivalent, preservative 4 completed Machelle Odell [facility] 12/28/2023 10:12:26 Influenza, recombinant, quadrivalent, PF 9 completed Machelle Odell [facility] 12/28/2023 10:12:26 zoster recombinant 9 completed Machelle Odell [facility] 12/28/2023 10:12:26 COVID-19, mRNA, LNP-S, PF, 30 mcg/0.3 mL dose, jonny-sucrose 2 completed Machelle Odell [facility] 12/28/2023 10:12:26 COVID-19, mRNA, LNP-S, PF, 50 mcg/0.5 mL 4 completed Machelle Odell [facility] 12/28/2023 10:12:26 COVID-19, mRNA, LNP-S, PF, 50 mcg/0.5 mL 3 completed Machelle Odell [facility] 12/28/2023 10:12:26 influenza, unspecified formulation 4 completed Machelle Odell [facility] 12/28/2023 10:12:26 Influenza, split virus, trivalent, PF 6 completed Machelle Odell [facility] 12/28/2023 10:12:26 Past Encounters Encounter ID Performer Location Encounter Start Date Encounter Closed Date Diagnosis/Indication Diagnosis SNOMED-CT Code Diagnosis ICD10 Code Diagnosis Note [id number] Radiology , [address] [address] 11/06/2000 16:00:00 09/09/2008 02:02:29 [id number] [facility], OFFICE [address] [place] [place] [address] 01/18/2001 16:15:00 09/09/2008 02:02:29 [id number] Radiology , [address] [place] [address] 11/06/2000 00:00:00 09/09/2008 02:02:29 [id number] [address] [address] 01/03/2002 16:00:00 09/09/2008 02:02:29 [id number] Radiology , [address] [place] [address] 01/03/2002 00:00:00 09/09/2008 02:02:29 [id number] [facility], OFFICE [address] [place] [address] 02/24/2002 11:15:23 09/09/2008 02:02:29 [id number] LAB - [facility] [address] [place] [address] 02/25/2002 09:30:48 09/09/2008 02:02:29 [id number] [facility], OFFICE [address] [place] [address] 04/25/2002 14:27:12 09/09/2008 02:02:29 [id number] [facility], OFFICE [address] [place] [address] 09/02/2002 08:55:37 09/09/2008 02:02:29 [id number] [facility], OFFICE [address] [place] [address] 04/01/2003 10:20:52 09/09/2008 02:02:29 [id number] Radiology , [address] [place] [address] 04/14/2003 16:39:01 09/09/2008 02:02:29 [id number] Radiology , [address] [place] [address] 04/14/2003 00:00:00 09/09/2008 02:02:29 [id number] LAB - [facility] [address] [place] [address] 05/07/2003 15:50:27 05/07/2003 15:50:29 [id number] [facility], OFFICE [address] [place] [address] 6 05/30/2004 16:57:17 05/31/2004 13:46:44 [id number] , [facility], OFFICE [address] [place] [address] 6 06/02/2004 16:15:56 06/03/2004 14:49:10 [id number] Radiology , [facility] [address] [place] [address] 6 07/28/2004 15:10:37 07/29/2004 09:03:12 [id number] Radiology , [facility] [address] [place] [address] 6 07/28/2004 00:00:00 09/09/2008 02:02:29 [id number] , [facility], OFFICE [address] [facility] [place] [address] 10/04/2004 10:14:37 10/04/2004 16:44:44 [id number] [facility], OFFICE [address] [facility] [place] [address] 10/10/2004 09:48:23 10/10/2004 15:13:25 [id number] LAB - [facility] [address] [place] [address] 10/10/2004 10:24:36 10/10/2004 10:25:00 [id number] [facility], OFFICE [address] [facility] [place] [address] 6 05/04/2005 15:09:06 09/09/2008 02:02:29 [id number] [facility], OFFICE [address] [facility] [place] [address] 05/18/2005 15:41:04 09/09/2008 02:02:29 [id number] , [facility], OFFICE [address] [facility] [place] [address] 6 12/08/2005 11:37:45 12/08/2005 16:08:48 [id number] LAB - [facility] [address] [place] [address] 6 12/08/2005 12:31:59 12/08/2005 12:32:16 [id number] , [facility], OFFICE [address] [facility] [place] [address] 6 12/29/2005 12:15:55 12/29/2005 15:43:26 [id number] , [facility], OFFICE [address] [place] [address] 01/05/2006 10:13:14 01/05/2006 16:40:16 [id number] [facility] , [address] [place] 6 02/12/2006 07:32:12 02/12/2006 09:19:24 [id number] [facility] , [address] [place] [address] 02/12/2006 00:00:00 09/09/2008 02:02:29 [id number] Radiology , [address] [place] 6 02/27/2006 16:58:46 09/09/2008 02:02:29 [id number] [facility] , [address] [address] 02/27/2006 00:00:00 09/09/2008 02:02:29 [id number] LAB - [address] [place] [address] 07/16/2006 15:44:34 07/16/2006 15:44:58 [id number] , [facility], OFFICE [address] [place], [place] [address] [address] 07/16/2006 15:25:07 07/17/2006 12:54:05 [id number] LAB - [address] [address] 07/16/2006 00:00:00 09/09/2008 02:02:29 [id number] [address] [address] 08/02/2006 15:51:20 08/03/2006 09:20:28 [id number] Radiology , [address] [address] 08/02/2006 00:00:00 09/09/2008 02:02:29 [id number] [address] [address] 08/09/2006 15:04:14 08/10/2006 09:17:20 [id number] [address] [address] 08/09/2006 00:00:00 09/09/2008 02:02:29 [id number] Radiology , [address] [address] 02/21/2007 12:05:38 02/22/2007 09:17:51 [id number] Radiology , [facility] [place] [address] 02/21/2007 00:00:00 09/09/2008 02:02:29 [id number] FP, [facility], OFFICE [address] [place] [address] 03/26/2007 16:39:54 03/27/2007 09:16:18 [id number] , [facility], OFFICE [address] [place] [address] 07/10/2007 08:40:20 09/09/2008 02:02:29 [id number] Radiology , [facility] [address] [place] [address] 07/10/2007 09:27:26 07/15/2007 09:24:42 [id number] Radiology , [facility] [address] [place] [address] 6 07/10/2007 00:00:00 09/09/2008 02:02:29 [id number] , [facility], OFFICE [address] [place] [address] 08/03/2007 10:11:30 09/09/2008 02:02:29 [id number] FP, [facility], OFFICE [address] [facility] [place] [address] 07/06/2009 09:33:21 07/13/2009 08:16:24 [id number] FP, [facility], OFFICE [address] [facility] [address] 07/27/2009 11:35:55 07/29/2009 09:14:30 [id number] , [facility], OFFICE [address] [facility] [place] [address] 06/14/2010 09:46:13 06/30/2010 12:27:37 [id number] FP, [facility], OFFICE [address] [facility] [place] [address] 07/08/2010 09:58:07 07/13/2010 10:57:41 [id number] Radiology , [facility] [address] [place] [address] 08/18/2010 10:01:51 08/22/2010 13:13:55 [id number] FP, C, OFFICE [address] [facility] [place] [address] 12/01/2010 10:06:30 12/06/2010 09:49:51 [id number] Radiology , [facility] [address] [place] [facility] [place] [address] 12/02/2010 13:23:36 12/07/2010 15:54:25 [id number] , [facility], OFFICE [address] [place] [facility] [place] [address] 12/13/2010 15:22:34 12/15/2010 13:38:44 [id number] , [facility], OFFICE [address] [place] [facility] [place] [address] 01/06/2011 09:24:58 01/10/2011 14:47:56 [id number] , [facility], OFFICE [address] [facility] [place] [address] 08/07/2011 09:06:44 08/07/2011 09:43:45 [id number] Patti Barry MD , [facility], OFFICE [address] [facility] [place] [address] 05/16/2012 10:28:48 05/16/2012 11:48:47 [id number] Leia Peterson NP , [facility], OFFICE [address] [facility] [place] [address] 11/11/2012 16:29:35 11/11/2012 17:04:07 [id number] Adriana Pacheco MD Radiology , [facility] [address] [facility] [place] [address] 11/15/2012 12:59:49 11/19/2012 09:56:10 [id number] Sweta Rose LPN , [facility], OFFICE [address] [facility] [place] [address] 11/26/2012 14:59:42 11/26/2012 16:01:52 [id number] Janice Baez , [facility], OFFICE [address] [facility] [place] [address] 06/24/2013 09:56:14 06/24/2013 10:44:38 Knee pain [id number] Lacy Chau, PT Physical Therapy, [facility] [address] [facility] [place] [address] 07/08/2013 16:25:07/10/2013 08:10:04 Knee pain 87174801 [id number] Janice Agustinlen FP, [facility], OFFICE [address] [place] [address] 01/27/2014 09:29:41 01/27/2014 10:21:35 Benign essential hypertension 8814866 Blood pressure at goal Hip pain 77406499 advise d to consider PT [id number] Priya Wilson RN FP, [facility], OFFICE [address] [place] [address] 02/23/2014 11:04:29 02/23/2014 11:47:32 Adult health examination [id number] see Risk Assessment and Lifestyle Change Counseling section above Benign ess ential hypertension 5359150 Blood pressure at goal [id number] Abby Sales MD FP, [facility], OFFICE [address] [place] [address] 08/27/2014 10:21:33 08/27/2014 11:08:52 Rib pain 003091152 [id number] Meghna GASCA, [facility], OFFICE [address] [place] [address] 6 09/02/2014 11:30:28 09/03/2014 14:29:21 Rib pain 710048581 improving, call if does not resolve or recurs [id number] Dinorah Fonseca LPN FP, [facility], OFFICE [address] [place] [address] 6 10/06/2014 10:01:46 10/06/2014 10:31:40 Benign essential hypertension 3725363 Blood pressure at goal cont current treatment [id number] Priya Wilson RN FP, [facility], OFFICE [address] [place] [address] 6 03/16/2015 10:56:42 03/16/2015 11:45:15 Adult health examination [id number] see Risk Assessment and Lifestyle Change Counseling section above Benign ess ential hypertension 7334319 Blood pressure at goal Blood pressure NOT at goal. Administra tion of pneumococcal vaccine 63672505 Infective hepatitis immunization 795357009 [id number] MARVA Daily, [facility], OFFICE [address] [place] [address] 06/25/2015 15:00:52 06/25/2015 15:17:20 Active or passive immunization 893296253 Z23 [id number] Mariann Malcolm , [facility], OFFICE [address] [place] [address] 6 10/05/2015 10:02:36 10/05/2015 12:17:01 Benign essential hypertension 9669710 I10 Blood pressure at goal or <140/90, continue current medication s, tolerating well Intrinsic asthma 5315954 08 J45.20 INTERMITTE NT Asthma- Based on history, physical assessment and peak flow the patients asthma is in control. Will continue the present medication s and follow-up in 6 months. The asthma action plan has been discussed. The patient verbalizes understand ing medication use.. The patient is in agreement with this plan. Counseling 718637640 Z71 .9 Mixed hyperlipidemia 267 120240 E78.2 Cholestero l is at goal Continue to work on diet and exercise as discussed Screening for malignant neoplasm of colon 413170751 Z12.11 Referral for a DIRECT booked colonoscop y. This patient is a healthy ASA Class 1 or 2 patient (only mild systemic disease), or a STABLE, well controlled insulin dependent diabetic. They do not have serious cardiac disease ie SD/angiopl asty within 1 year, symptomati c CHF; renal failure with CKD 4 or 5; take Coumadin, Plavix, Aggrenox, etc; nor take chronic narcotics. [Patients who take chronic narcotics should be referred to [facility] for a propofol procedure due to possible inability to sedate adequately with conscious sedation.] [id number] Archana Chau PA-C , [facility], OFFICE [address] [place] [address] 10/22/2015 09:21:11 10/22/2015 10:11:47 Mass of joint of hand 397250019 M25.759 [id number] Светлана Pike [facility], [address] [address] 12/06/2015 09:15:56 12/06/2015 12:41:17 [id number] MD ELO Waters, [facility], OFFICE [address] [place] [address] 06/30/2016 09:18:48 06/30/2016 10:35:55 Adult health examination 906217231 Z00.00 Traveler's diarrhea 1184 0006 A04.1 Essential hypertension 33955743 I10 Pain in toe 489396793 M7 9.024 [id number] Morales Zaragoza DPM Podiatry, [address] [address] 07/25/2016 09:57:15 07/25/2016 10:19:44 Ganglion of foot 319733859 M67.315 [id number] Abby Sales MD , [facility], OFFICE [address] [place] [address] 09/16/2016 09:14:58 09/16/2016 11:52:31 Acute upper respiratory infection 19218257 J06.9 Educated patient that URI is a viral illness of the upper airways. It is not bacterial and does not benefit from antibiotic s. Average duration of URI is 7-10 days but in a recent trial, treatment at 7-10 days of illness with antibiotic s, intranasal steroids, or placebo did not alter natural history at 3 weeks. Recommende d symptomati c treatments including NSAIDS, semi-uprig ht sleep position, antihistam kristal at HS, limited course of nasal sympathomi metics and/or cough syrups, and nasal saline rinses with soft squeeze bottle or Neti pot. Return for fevers > 101 for 3 days, worsening sinus pain, or failure to resolve in 2-4 weeks. Fatigue 20046686 R53.83 [id number] Abby Sales MD , [facility], OFFICE [address] [place] [address] 01/05/2017 15:20:12 01/05/2017 15:52:56 Benign essential hypertension 6756257 I10 continue to work on diet, exercise, and lowering salt intake as discussed Wheezing 77815968 R06.2 [id number] Archana Chau PA-C , [facility], OFFICE [address] [place] [address] 01/30/2017 13:51:02 01/31/2017 14:45:54 Strain of thoracic region 02385594 S29.019A - Recommend 7 days of heat, stretching , and ibuprofen- Return to office if not improving [id number] Dang Rincon LPN , [facility], OFFICE [address] [place] [address] 06/20/2017 07:21:12 06/20/2017 16:09:19 Active or passive immunization 972230777 Z23 [id number] Bryce Beauchamp MD , [facility], OFFICE [address] [place] [address] 6 08/22/2017 15:19:05 08/28/2017 15:45:40 Epidermoid cyst 366392538 L72.0 Given possible adherence on right side, consider removal by derm [id number] Bryce Beauchamp MD , [facility], OFFICE [address] [place] [address] 6 08/27/2017 11:23:02 08/27/2017 13:33:11 Epidermoid cyst 613896658 L72.0 Cyst removed without incidentNo showers for [facility] r for signs of infection, redness, cloudy drainage, pain, swelling, fever. f/u for any signs of infectionf /u in 7-10 days for suture removal [id number] Bryce Beauchamp MD , [facility], OFFICE [address] [place] [address] 09/04/2017 15:24:19 09/06/2017 10:59:39 Removal of suture 15988001 Z48.02 Healing wellsteri strips appliedcon tinue to monitor for any signs of infection [id number] Abby Sales MD , [facility], OFFICE [address] [place] [address] 6 10/16/2017 09:28:50 10/16/2017 10:26:17 Asthma 274318189 J45.909 Greater tr ochanteric pain syndrome 4434711 M70.62 Impingemen t syndrome of shoulder region 265609112 M75.42 [id number] Abby Sales MD , [facility], OFFICE [address] [place] [address] 6 11/06/2017 10:51:57 11/06/2017 13:43:01 Adult health examination 776820648 Z00.00 see Risk Assessment and Lifestyle Change Counseling section above Counseling 891375461 Z71 .9 Depression screening 171 400783 Z13.89 depression screening tool administer ed, entered into emr, scored and discussed, time greater than 7.5 minutes Benign ess ential hypertension 9086904 I10 Asthma 941899204 J45.30 Mixed hyperlipidemia 267 796458 E78.2 Active or passive immunization 932730225 Z23 Greater tr ochanteric pain syndrome 2332628 M70.62 [id number] Abby Sales MD FP, [facility], OFFICE [address] [place] [address] 6 12/17/2017 13:25:01 12/17/2017 15:33:21 Tick bite without infection 913448874 T14.8XXA [id number] Dottie Segundo NP FP, [facility], OFFICE [address] [place] [address] 6 03/27/2018 16:53:22 03/27/2018 17:36:00 Dizziness 270415698 R42 Lightheadedness 00259517 8 R42 [id number] Abby Sales MD , [facility], OFFICE [address] [place] [address] 6 03/29/2018 09:26:08 03/29/2018 14:09:37 Vertigo 586471309 R42 [id number] Abby Sales MD , [facility], OFFICE [address] [place] [address] 6 07/01/2018 15:00:50 07/02/2018 08:16:48 Benign essential hypertension 6399085 I10 Mixed hyperlipidemia 267 187089 E78.2 Active or passive immunization 328566904 Z23 [id number] Abby Sales MD , [facility], OFFICE [address] [place] [address] 6 01/14/2019 08:29:54 01/14/2019 09:24:55 Adult health examination 855725033 Z00.00 see Risk Assessment and Lifestyle Change Counseling section above Counseling 042418827 Z71 .9 Depression screening 171 845898 Z13.89 depression screening tool administer ed, entered into emr, scored and discussed, time greater than 7.5 minutes Intrinsic asthma 3151561 08 J45.20 INTERMITTE NT Asthma- Based on history, physical assessment and peak flow the patients asthma is in control. Will continue the present medication s and follow-up in 6 months. The asthma action plan has been discussed. The patient verbalizes understand ing medication use.. The patient is in agreement with this plan. Mixed hyperlipidemia 267 314633 E78.2 Essential hypertension 50105625 I10 Active or passive immunization 335458004 Z23 [id number] Waleska Martinez , [facility], OFFICE [address] [place] [address] 6 06/09/2019 14:52:18 06/09/2019 15:31:43 Jaw pain 676867042 R68.84 Recommenda tions as below. [id number] Abby Sales MD , [facility], OFFICE [address] [place] [address] 6 06/24/2019 09:21:46 06/27/2019 17:08:32 Essential hypertension 25658572 I10 Asthma 331977986 J45.30 Temporoman dibular joint disorder 92492294 M26.006 [id number] Abby Sales MD , [facility], OFFICE [address] [place] [address] 6 07/25/2019 10:09:01 07/25/2019 14:51:43 Essential hypertension 26442131 I10 Impingemen t syndrome of left shoulder region 2303978759 25568 M75.42 [id number] Lluvia GASCA, [facility], OFFICE [address] [place] [address] 6 02/03/2020 11:45:37 02/03/2020 16:19:07 Adult health examination 453874127 Z00.00 see Risk Assessment and Lifestyle Change Counseling section above Counseling 082417287 Z71 .9 including cardiovasc ular risk reduction counseling Depression screening 171 877574 Z13.89 depression screening tool administer ed, entered into emr, scored and discussed, time greater than 7.5 minutes Screening for alcohol abuse 226053945 Z13.39 Advance di rective discussed with patient 652466874 Z71.89 Mild inter mittent asthma 522100984 J45.20 Essential hypertension 18937043 I10 Mixed hyperlipidemia 267 983304 E78.2 History of bilateral mastectomy 426370551 Z90.13 2006 s/p breast cancer [id number] Susi Mondragon MA , [facility], OFFICE [address] [place] [address] 06/09/2020 11:11:56 06/10/2020 08:55:57 Active or passive immunization 594823655 Z23 [id number] Abby Sales MD , [facility], OFFICE [address] [place] [address] 6 08/02/2020 09:04:18 08/03/2020 10:50:34 Essential hypertension 85256887 I10 Mild inter mittent asthma 202128223 J45.20 (symptoms or bronchodil ator use at most two days per week) Based on history, physical assessment , and ACT, the patient's asthma is in control. Will continue the present medication s and follow up in 6 months. The asthma action plan has been discussed. The patient verbalizes understand ing medication use.. The patient is in agreement with this plan. [id number] Abby Sales MD , [facility], OFFICE [address] [place] [address] 6 03/11/2021 14:39:29 03/15/2021 13:19:47 Diverticulitis of colon 885854257 K57.32 Contusion of lip 0231576 7 S00.531D Contusion of periorbital region 436732465 S00.11XD [id number] Abby Sales MD , [facility], OFFICE [address] [place] [address] 6 04/18/2021 09:38:43 04/18/2021 10:32:48 Adult health examination 735261852 Z00.00 see Risk Assessment and Lifestyle Change Counseling section above Counseling 454181091 Z71 .9 including cardiovasc ular risk reduction counseling Depression screening 171 483347 Z13.31 depression screening tool administer ed, entered into emr, scored and discussed, time greater than 7.5 minutes Screening for alcohol abuse 704654666 Z13.39 Advance di rective discussed with patient 972417046 Z71.89 Essential hypertension 98372571 I10 History of bilateral mastectomy 900526789 Z90.13 2006 s/p breast cancer Active or passive immunization 498033204 Z23 [id number] Chelsi Sands LPN , [facility], OFFICE [address] [place] [address] 06/07/2021 07:23:30 06/08/2021 08:26:37 Active or passive immunization 078362097 Z23 [id number] Chloé Tejada NP , [facility], OFFICE [address] [place] [address] 07/07/2021 10:40:24 07/07/2021 11:20:39 Acute upper respiratory infection 46524262 J06.9 Drink plenty of fluids. Eat healthy foods, lots of fruits and vegetables . Rest when you can. Take ibuprofen 400 mg or acetaminop hen 650 mg every 6 hours as needed for aches or headache and for fever. You can use a Neti pot for nasal congestion or sinus pain/press ure. Elderberry extract and Umcka are herbal remedies that have been shown to reduce length of flu-like symptoms. Gargling with salt water can help your immune system fight off the sore throat. Mix 1/2 teaspoon of salt with 8 oz warm water, gargle for 20-30 secs, and spit out the liquid. Repeat twice daily. Use Sugar free lozenges can help with a sore throat. Wash your hands frequently . Symptoms may worsen for the first 7-10 days before they improve For high fever (>101) for more than 3 days, worsening shortness of breath, cough productive of rust-color ed mucus (not dark yellow), or symptoms unchanged at two weeks, come back in for reassessme nt (urgent care available in [place] office Sat 9-4 and Sunday 9-12 by appointmen t - call after 8AM for appt.) Dry cough can last for up to six weeks. Cough 62506937 R05.1 discussed supportive care. tessalon perles as needed for cough. no wheezing. does have hx of asthma. use albuterol as needed. covid test today. quarantine pending negative results. [id number] Abby Sales MD , [facility], OFFICE [address] [place] [address] 11/10/2021 08:22:41 11/10/2021 09:29:45 Mixed hyperlipidemia 568225459 E78.2 Essential hypertension 90614603 I10 Tight chest 87852524 R07 .89 Multiple skin tags 44496 7009 L91.8 [id number] Brianda Chu NP , [facility], OFFICE [address] [place] [address] 02/05/2022 08:58:01 02/05/2022 09:25:00 Left lower quadrant pain 821193628 R10.32 ?Diverticu litis - consistent with prev episodesDi scussed conservati ve tx - no fevers & sx mildDiscus sed liquid diet x 24 hrs and f/u tomorrow morning if no resolution of sx.Will start abx then.Pt in agreement with plan.Revie wed red flags & when to seek UC/ED or RTO. Pt states understand ing & is in agreement with plan. [id number] Abby Sales MD , [facility], OFFICE [address] [place] [address] 07/24/2022 09:18:40 07/24/2022 10:52:32 Adult health examination 452374870 Z00.00 see Risk Assessment and Lifestyle Change Counseling section above Counseling 644703592 Z71 .9 including cardiovasc ular risk reduction counseling Depression screening 171 997436 Z13.31 depression screening tool administer ed, entered into emr, scored and discussed, time greater than 7.5 minutes Screening for alcohol abuse 693865234 Z13.39 Mixed hyperlipidemia 267 681270 E78.2 Essential hypertension 48704540 I10 Active or passive immunization 149471148 Z23 Pt will get Flu vac today 07/24/22 as History of diverticulitis 8576643054 41127 Z87.19 Mild inter mittent asthma 282636600 J45.20 (symptoms or bronchodil ator use at most two days per week) Based on history, physical assessment , and ACT, the patient's asthma is in control. Will continue the present medication s and follow up in 6 months. The asthma action plan has been discussed. The patient verbalizes understand ing medication use.. The patient is in agreement with this plan. [id number] Chloé Tejada NP , [facility], OFFICE [address] [place] [address] 07/06/2022 16:03:45 07/06/2022 16:46:23 Diverticulitis 138651827 K57.92 Recent Dx at [facility] a little over a week ago. Stopped Augmentin due to GI s/e. Was then switched to Levaquin and Flagyl at [facility]. she took this for 4 days. stopped due to nausea, chemical taste, and lethargy. Her pain has now resolved but continues to have loose stool. Will go back to a liquid diet for the next few days and follow up if not resolving. Sooner if significan t pain, fever, or other concerns come up Postviral cough 35601797 4 R05.3 r/t URI almost 2 months ago. resolving. LCTA today. Will continue to monitor and follow up with pcp at scheduled [place] 07[place]24. Call sooner if you have any trouble breathing Essential hypertension [id number] I10 BP improved but not at goal of <130/80 on recheck today. Liekly r/t stress and recent illness. Will follow up with pcp at her scheduled [place] in 2.5 weeks [id number] Bryce Beauchamp MD , [facility], [address] [place] [address] 08/07/2022 15:07:44 08/07/2022 16:01:12 COVID-19 [id number] U07.1 A discussion regarding the use of Paxlovid treatment in the setting of COVID-19 infection was had with the patient. The patient qualifies for Paxlovid treatment. They are 12 years old or older and weight at least 40kg (88lbs). They have a positive COVID test (either PCR or antigen). Symptom onset was within 5 days. They do not have severe renal impairment (GFR >30). If the GFR is 30-60, the dose of the medication is reduced. eGFR >60: 300mg nirmatrelv ir (two 150mg tablets) with 100mg ritonavir (one tablet). All 3 tablets taken together twice daily for 5 days, with or without food. ? eGFR 30-60: 150mg nirmatrelv ir with 100mg ritonavir. Both tablets taken together twice daily for 5 days, with or without food. The patient was advised that the treatment is sent to a local pharmacy. We have checked availabili ty through this website: https://ww w.K[employer].gov /info-deta ils/inform ation-for- providers- about-ther apeutic-tr eatments-f or-covid-1 9#covid-19 -therapeut ic-take up operator - This medication is authorized by the FDA for emergency use only. Data from clinical trials have shown that these treatments reduce the risk of ER visits, hospitaliz ation, and in patients with mild to moderate symptoms, and those at high risk of complicati ons. Side effects were discussed: 1. Allergic reactions are possible, notify the nurse with any concerning symptoms 2. Liver problems ? notify your provider if you experience loss of appetite, yellowing of the skin or eyes, dark colored urine, or pale colored stools. 3. Altered sense of taste 4. Nausea 5. High blood pressure 6. Muscle aches 7. This is medication is still being investigat ed so not all side effects are known at this time. 8. Risks for or breastfeed ing women are currently unknown. 9. This medication may interact with oral control options. Please use condoms or a barrier method while on this medication . Your provider has reviewed interactio ns with all of your medication s and the following need to be stopped or the dose reduced: xxx How do I take PAXLOVID? PAXLOVID consists of 2 medicines: nirmatrelv ir and ritonavir. - Take 2 pink tablets of nirmatrelv ir with 1 white tablet of ritonavir by mouth 2 times each day (in the morning and in the evening) for 5 days. For each dose, take all 3 tablets at the same time. - If you have kidney disease, talk to your healthcare provider. You may need a different dose. - Swallow the tablets whole. Do not chew, break, or crush the tablets. - Take PAXLOVID with or without food. - Do not stop taking PAXLOVID without talking to your healthcare provider, even if you feel better. - If you miss a dose of PAXLOVID within 8 hours of the time it is usually taken, take it as soon as you remember. If you miss a dose by more than 8 hours, skip the missed dose and take the next dose at your regular time. Do not take 2 doses of PAXLOVID at the same time. [id number] Abby Sales MD , [facility], [address] [place] [address] 01/22/2023 10:09:08 01/22/2023 10:58:18 Essential hypertension 59218928 I10 Mixed hyperlipidemia 267 860036 E78.2 Active or passive immunization 430098506 Z23 Pt will get Flu vac today 07/24/22 as [id number] Abby Sales MD , [facility], [address] [place] [address] 04/24/2023 10:08:16 04/26/2023 09:47:55 Transient cerebral ischemia [id number] G45.9 Essential hypertension 29550480 I10 [id number] Shania Sierra MA , [facility], [address] [place] [address] 05/18/2023 07:13:29 05/18/2023 17:10:41 Active or passive immunization 598046192 Z23 [id number] Abby Sales MD , [facility], [address] [place] [address] 07/26/2023 08:10:46 07/26/2023 09:34:54 Adult health examination 995359930 Z00.00 see Risk Assessment and Lifestyle Change Counseling section above Depression screening 171 010305 Z13.31 depression screening tool administer ed Screening for alcohol abuse 154156426 Z13.39 Alcohol use screening tool administer ed Mild inter mittent asthma 484396852 J45.20 (symptoms or bronchodil ator use at most two days per week) Based on history, physical assessment , and ACT, the patient's asthma is in control. Will continue the present medication s and follow up in 6 months. The asthma action plan has been discussed. The patient verbalizes understand ing medication use.. The patient is in agreement with this plan. Ophthalmic migraine [address] Henriquez dx: 2022 Hyperlipidemia 48482042 E78.5 Chronic ki dney disease stage 3 [id number] N18.30 [id number] Bryce Beauchamp MD , [facility], [address] [place] [address] 11/21/2023 09:17:28 11/22/2023 09:06:04 Essential hypertension 83872427 I10 On hydrochlor othiazide blood pressure 172/86 today. It has been controlled in the recent past. Recommend checking at home and if still elevated add lisinopril 5 mg with a follow-up in the office after a couple weeks or so. Pain in fi nger of right hand [id number] 54422 M79.644 Possible foreign body in the right ring finger. Nothing can be seen today on examinatio n and transillum ination. Would wait for her to declare itself probably will take about a month or so. I seen him take 2 years. [id number] , [facility], [address] [place] [address] 12/28/2023 10:02:47 12/28/2023 16:54:39 Essential hypertension 65524749 I10 HBPM reliable, checked today and similar HTN - NOT at goal of less than 130/80 per AHA guidelines .continue HCTZ 25 mg and add olmesartan 5 mg daily and pt has appt in January 2024. Continue low salt diet of less than 1500 mg of sodium per day. The [place] [employer] n (AHA) recommends 30 minutes of moderate physical activity 5 days a week. A Mediterran victorina type of diet and a plant based diet is recommende d, review the website: OldIngrian Networkspt. org. The DASH diet is also recommende d. * Review this website: https://brian waters.Sendbloom/al l-about-go od-and-sierra ap for healthy inexpensiv e meals. * For any changes in your medication regimen, please call in the interim if with any intoleranc e to the medication . Chest pain 48967788 R07. 9 persistent chest pain on exertion, since 2021exerci se stress test normal, re-evaluat e CT of chest abnormal 5[id number] of abd and pelviswill r/o PE Diverticul itis of colon 989087742 K57.32 resolved. [id number] Abby Sales MD , [facility], [address] [place] [address] 01/31/2024 09:02:41 01/31/2024 09:54:41 Essential hypertension 38298238 I10 HBPM reliable, checked today and similarHTN - at goal of less than 130/80 - tolerating olmesartan 5 mg daily but with low readings and lightheade dness, f/u in 6 mos.hold off on HCTZ and continue checking at home, will send readings via portalCont inue low salt diet of less than 1500 mg of sodium per day. The [place] Heart Associ[employer] n (AHA) recommends 30 minutes of moderate physical activity 5 days a week.A Mediterran victorina type of diet and a plant based diet is recommende d, review the website: [employer]. UserApp. The DASH diet is also recommende d.* For any changes in your medication regimen, please call in the interim if with any intoleranc e to the medication . Diverticul itis of colon 143266386 K57.32 resolved. Discussed need for colonoscop y if with bout of diverticul itis. Last one was 2016 normal. Hyperlipidemia 98612800 E78.5 * Discussed cholestero l. Your HDL (good type) and triglyceri luan are at goal.* Your LDL (bad type of cholestero l) is at goal* Continue your cholestero l lowering medication daily., simvastati n.* Saturated fat is a bad kind of fat. For a heart healthy diet, 16 grams of saturated fat per day for women and 20 grams of saturated fat per day for men.*The [place] Heart Associ[employer] n (AHA) recommends 30 minutes of moderate physical activity 5 days a week.* A Mediterran victorina type of diet and a plant based diet is recommende d, review the website: [employer] [place]. org. The DASH diet is also recommende d.* Review this website: https://brian watersPrestoSports/karly l-about-go od-and-sierra ap for healthy inexpensiv e meals. [id number] Abby Sales MD , [facility], [address] [place] [address] 05/01/2024 10:09:55 05/01/2024 11:03:42 Active or passive immunization 167294137 Z23 Pt will get Flu vac today 07/24/22 as Flu: wants to get at pharm evelinDelphine MURPHY, wants to finish abx 05/01/24 as Essential hypertension 41064195 I10 HBPM machine reliableHT N - at goal of less than 130/80 with olmesartan 10 mg daily however it is too expensive so will just take 5 mg olmesartan and add in the HCTZ 25 mg - pt will check at home and send readings via portalCont inue low salt diet of less than 1500 mg of sodium per day. The [place] Heart Associ[employer] n (AHA) recommends 30 minutes of moderate physical activity 5 days a week.A Mediterran victorina type of diet and a plant based diet is recommende d, review the website: [employer]. UserApp. The DASH diet is also recommende d. Colostomy present 053800 009 Z93.3 tolerating well, no concerns, followed by Dr Nava Hyperlipidemia 29992075 E78.5 * Your LDL (bad type of cholestero l) is at goal* Continue your cholestero l lowering medication daily., simvastati n.* Saturated fat is a bad kind of fat. For a heart healthy diet, 16 grams of saturated fat per day for women and 20 grams of saturated fat per day for men.* pt bought a house in [place] and would like to transfer to [facility] History of sigmoid colectomy 848284825 Z90.49 infection and perforatio n resulted in sigmoidect scooter and colostomy [id number] ERWIN Orozco , [facility], [address] [facility] [place] [address] 05/14/2024 14:42:31 05/15/2024 07:36:08 Essential hypertension 38764460 I10 BPs have been running low, recommend to cut hctz in half to decrease to 12.5 mg daily. Continue taking BP at home, send us a portal message or call for readings above 130/80 or below 100/70. Let us know if dizziness does not improve - I can see you before your July appt for a follow up. Discussed risks/bene fits of tight blood pressure control vs. the risk of dizziness and potential falls. Reviewed safety precaution s - increase fluids, sit down for a moment if feeling dizzy when standing. History of sigmoid colectomy 109565900 Z90.49 Will see surgical nurse in a week, will see Dr. Alexander (GI) in May. [id number] Jud Molina . MD [place], [facility] [address] [place] [address] 07/07/2024 13:17:46 07/07/2024 13:49:43 Active or passive immunization 374330545 Z23 flu shot today. Right side d abdominal pain 176424297 R10.9 Pain is worse with laughing, coughing and when supine, could not demonstrat e/reproduc e the pain on exam. No palpable masses or obvious hernias. Had raked the leaves a few days before symptoms started. No evidence of bowel obstructio n or appendicit is. Discussed options of watchful waiting or abdominal imaging. Chose to monitor symptoms for now.? Related to adhesions from perforated diverticul itis and subsequent colostomy, ? Abdominal wall strain,? Undiagnose d hernia. She will follow up with PCP should symptoms persist or worsen. [id number] EHSAN ESPINOSA NP , [facility], [address] [facility] [place], [place] [address] 08/21/2024 09:48:16 08/22/2024 08:27:32 Essential hypertension 86754937 I10 HTN - at goal of less than 130/80 on olmesartan 5 mg daily and HCTZ 12.5 mgContinue low salt diet of less than 1500 mg of sodium per day. The [place] Heart Associ[place] n (AHA) recommends 30 minutes of moderate physical activity 5 days a week.A Mediterran victorina type of diet and a plant based diet is recommende d, review the website: OldIngrian Networkspt. org. The DASH diet is also recommende d.* For any changes in your medication regimen, please call in the interim if with any intoleranc e to the medication . Follow up in 6 months Hyperlipidemia 87559255 E78.5 * Discussed cholestero l. Your HDL (good type) and triglyceri luan are at goal.* Your LDL (bad type of cholestero l) is at goal* Continue your cholestero l lowering medication daily., nadya n.* Saturated fat is a bad kind of fat. For a heart healthy diet, 16 grams of saturated fat per day for women and 20 grams of saturated fat per day for men.*The [place] Heart Associatio n (AHA) recommends 30 minutes of moderate physical activity 5 days a week.* A Mediterran victorina type of diet and a plant based diet is recommende d, review the website: [employer]. The DASH diet is also recommende d.* Review this website: https://Peer5/al l-about-go od-and-sierra ap for healthy inexpensiv e meals. History of sigmoid colectomy 556664756 Z90.49 Scheduled to follow up with surgeon Health Concerns Section Related Observation LastModified by Organization Detai ls LastModified Time None Recorded Concern Status LastModified by Organization Details LastModified Time None Recorded Advance Directives Directive N: Payers Encounter Date Sequence Insurance Name Policy Number Policy Winter Covered Member ID Winter Member ID Guarantor Name 01/31/2024 1 [place] [employer] Jacqueline Huertaearn [id number] 3 Jacqueline Ortega Kyung 01/31/2024 2 [place] [id number] Jacqueline Huertaearn [id number] 08 Jacqueline Ortega Kyung 05/01/2024 1 [place] Jacqueline Huertaearn [id number] 3 Jacqueline Ortega Kyung 05/01/2024 2 [place] [id number] Jacqueline Ortega Kyung [id number] 08 Jacqueline Ortega Kyung 05/14/2024 1 [place] [place] Jacqueline Ortega Kyung [id number] 3 Jacqueline Ortega Kyung 05/14/2024 2 [place] [id number] Jacqueline Ortega Kyung [id number] Jacqueline Ortega Kyung 07/07/2024 1 [place] [place] Jacqueline Ortega Kyung [id number] 3 Jacqueline Ortega Kyung 07/07/2024 2 [place] [id number] Jacqueline Tracey [id number] 08 Jacqueline Tracey 08/21/2024 1 [place] Jacqueline Tracey [id number] 3 Jacqueline Tracey 08/21/2024 2 [place] [id number] Jacqueline Tracey [id number] Jacqueline Tracey Notes Date Note Type Note Provider Name and Address Organization Details Recorded Time 01/31/2024 text/html Patient presents for follow-up of their hypertension.Updates from last visit: s/p diverticulitis, had a vaginal yeast infection and used OTC meds and resolved;; diarrhea from antibiotics but improved today, still fatigued and weaknessalso got a cough and improved, had to use albuterol for thatHome blood pressures: started with new meds olmesartanTaking medications daily as prescribed.Side Effects: NoneLow salt diet: {{yes* no}}Exercise: when she feels betterCaffeine intake:Alcohol consumption:Doesn't SmokeDaily stress level: Denies any new shortness of breath, cough, dizziness, chest pain, nausea, vomiting, leg swelling or weakness. An independent historian contributed to the patient's information for this visit: {{yes no*}}.Patient is {{able* not able}} to manage his medications Abby Sales MD [address] [place] [address], [phone], [facility] 01/31/2024 10:03:05 05/01/2024 text/html here with Nick - husbandmoving in their [facility] for post hosp followupPt was admitted to [facility] on 04/14/2024 D/C 04/21/2024. Dx- perforation in Sigmoid due to diverticulitis. 04/17/2024- Dr. Eileen Nava, Laproscopic sigmoid colectomy w/ creation of colostomy.doing light chores at homeno fever no N/V,completed antibioticsdoing well, taking 10 mg olmesartan daily Abby Sales MD [address] [place] [address], [phone], [facility] 05/04/2024 14:06:18 05/14/2024 text/html (Case: Per [facility]NA: pt c/o dizziness when going from sitting to standing. orthostatic blood pressures were normal. 117/70 HR 96 for most recent BP. pt states it only lasts a short time, no faintness or falls. states this has been going on for awhile. no chest pain. heart rate regular. [facility]NA asking if pt should be seen sooner then Dec f/u) 2018 - vestibular therapy for dizziness Pt here with Nick. Recent colostomy. Thinks dizziness may be related to blood pressure. BP has been taken at home, reviewed and copied for chart. BPs have been low.Prior to dizzy spells pt's BP was typically closer to 130/80 range Taking one olmesartan (5 mg) and one hydrochlorothiazide. Could not take two olmesartan (10 mg) due to cost. Pt also lost weight, thinks that could contribute to lower BPs. No chest pain, no trouble breathing. ERWIN Orozco [address] [place], [address], [facility] 05/14/2024 23:15:24 07/07/2024 text/html pt reports RLQ p ain for 3-4 days, no N/V, no fever. pt has colostomy bag and states pain is worse at night when laying down. Patient states pain comes and goes.No bulge.No change in ostomy function/functioning well.No nausea or vomiting.Colostomy is after perforated diverticulitis, reversal is eventually planned.Pain is worse when supine and with laughing and coughing. Jud Molina. [address] [place], [address], [facility] 07/07/2024 13:47:20 08/21/2024 text/html 6 month med foll ow up, feeling well 1. HTNHCTZ dose halved to 12.5, resolved dizziness 2. hyperlipidemia - recent labs discussed Will see Dr. Nava, surgeon for colostomy, this monthColonoscopy scheduled for September EHSAN ESPINOSA NP [address] [place], [address], [facility] 08/21/2024 10:22:17 OBGyn Episode No OBEpisode recorded.
[2024-09-24 08:22] VITALS: BP 138/66; PULSE 75; RESP 18; TEMP 36.8; O2SAT 100; BMI 24.0
--- NOTE | 2024-09-24 08:24 | P.CONAN_ITS ---
Documented by User: Nicki Mason NP 09/23/24 08:29 HPI - Anesthesia Eval Consult details Narrative: 73yo F for Colonoscopy via Colosotomy [facility] Past Medical History Medical History (Updated 09/22/24 @ 09:55 by Karen Nichols, RN) Colostomy in place Diverticulitis History of right breast cancer Hx of radiation therapy Breast cancer, left breast Hyperlipidemia HTN (hypertension) Surgical History Surgical History (Updated 09/22/24 @ 09:55 by Karen Nichols RN) History of colon resection History of reconstruction of both breasts Hx of bilateral mastectomy History of lumpectomy of left breast Social History Social History Advance Directives: No Advance Directives Information Provided: Yes Meds Allergies Allergy/AdvReac Type Severity Reaction Status Date / Time sulfamethoxazole Allergy Severe Tongue Verified 09/24/24 08:14 [From Bactrim] swelling trimethoprim [From Bactrim] Allergy Severe Tongue Verified 09/24/24 08:14 Swelling Home Medications ?Medication ?Instructions ?Recorded ?Confirmed ?Last Taken ?Type hydrochlorothiazide 12.5 mg tablet 12.5 mg PO DAILY 09/22/24 09/24/24 Unknown History olmesartan 5 mg tablet 5 mg PO DAILY blood pressure 09/22/24 09/24/24 Unknown History simvastatin 20 mg tablet 20 mg PO DAILY 09/22/24 09/24/24 Unknown History Exam Height,Weight and Vital Signs: Height 5 ft 4 in Weight 67.585 kg Assessment and Plan Assessment Anesthesia Assessment: Chart Reviewed Documented by User: Alejandra Yeh DO 09/24/24 08:25 [facility] Past Medical History Medical History (Updated 09/22/24 @ 09:55 by Karen Nichols, UZAIR) Colostomy in place Diverticulitis History of right breast cancer Hx of radiation therapy Breast cancer, left breast Hyperlipidemia HTN (hypertension) Family History Family history of problems with anesthesia: No Surgical History Surgical History (Updated 09/22/24 @ 09:55 by Karen Nichols, RN) History of colon resection History of reconstruction of both breasts Hx of bilateral mastectomy History of lumpectomy of left breast History of Problems with Anesthesia: No Social History Social History Advance Directives: No Advance Directives Information Provided: Yes Meds Allergies Allergy/AdvReac Type Severity Reaction Status Date / Time sulfamethoxazole Allergy Severe Tongue Verified 09/24/24 08:14 [From Bactrim] swelling trimethoprim [From Bactrim] Allergy Severe Tongue Verified 09/24/24 08:14 Swelling Home Medications ?Medication ?Instructions ?Recorded ?Confirmed ?Last Taken ?Type hydrochlorothiazide 12.5 mg tablet 12.5 mg PO DAILY 09/22/24 09/24/24 Unknown History olmesartan 5 mg tablet 5 mg PO DAILY blood pressure 09/22/24 09/24/24 Unknown History simvastatin 20 mg tablet 20 mg PO DAILY 09/22/24 09/24/24 Unknown History Exam Exam Date and Time: 09/24/24 0825 Airway Mallampati Class: II TM Dist: <=3cm Neck ROM: Full Loose/Missing/Broken Teeth: No (patient denies any loose or broken teeth) Heart: S1S2 Lungs: CTAB Assessment and Plan Assessment Anesthesia Assessment: Anesthesia Plan Discussed and Chart Reviewed Final Anesthetic Review Family History of Problems with Anesthesia: No History of Problems with Anesthesia: No NPO: Yes ASA Class: II Final Preanesthetic Review: No Changes in Pt Med Stat, Meds/Allgs Chart Reviewed, Consent Obtained/Reviewed and Anes Risks/Benef Reviewed Patient Risk: Low Procedure Risk: Low Anesthetic Plan Anesthetic Plan: MAC: and Agree w/ Assess. and Plan Disposition: Standard PACU
[2024-09-24] MEDS: Lactated Ringers 1,000 ML 100 ML IVCONT (08:39)
[2024-09-24 09:54] VITALS: BP 106/61; PULSE 74; RESP 16; TEMP 36.4; O2SAT 98
--- NOTE | 2024-09-24 10:00 | PM.OP ---
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 Evan pouch) Condition: stable Disposition: PACU
[2024-09-24 10:09] VITALS: BP 131/68; PULSE 77; RESP 16; TEMP 36.4; O2SAT 97
--- NOTE | 2024-09-24 10:42 | OP_ITS ---
DATE OF SERVICE: 09/24/2024 SURGEON: Chris Alexander MD INDICATIONS: The patient presents for evaluation of colorectal cancer screening. Full consent was obtained from her for this, including risks of bleeding and perforation. PREOPERATIVE DIAGNOSIS: Colorectal cancer screening. POSTOPERATIVE DIAGNOSIS: PROCEDURE PERFORMED: ESTIMATED BLOOD LOSS: COMPLICATIONS: ANESTHESIA: Medication used, monitored anesthesia care. 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 PROCEDURES PERFORMED: Colonoscopy via the stoma to the cecum and sigmoidoscopy via rectum to 20 cm with biopsies. PROCEDURE IN DETAIL: The patient was placed in the supine position. The area of the stoma appeared normal including the bowel mucosa that appeared pink and healthy without any lesions. The area was lubricated. The Olympus video pediatric colonoscope was entered into the stoma and then advanced easily to the cecum. Once in the cecum, I did identify a normal-appearing cecal pouch with appendiceal orifice and a normal-appearing ileocecal valve. There was transillumination of light deep in the right lower quadrant. The entire cecum and ileocecal valve appeared normal. The scope was slowly withdrawn assessing all mucosal surfaces carefully. Preparation was excellent. I did not visualize any sign of polyps, colitis, or angiodysplasia. There were several diverticula just proximal to the stoma. The scope was withdrawn from the patient. She was then turned around and placed in the left lateral decubitus position for evaluation of the Evan pouch. The digital rectal exam revealed some external hemorrhoidal tissue, but it was otherwise unremarkable. The Olympus video pediatric colonoscope was then entered into the rectum and advanced to 20 cm. The scope was then slowly withdrawn assessing all mucosal surfaces carefully. I did not visualize any sign of polyps. There did appear to be some fairly acute-appearing areas of colitis with erythema, mucus, and minimal friability from 20 cm down to the rectal area. Biopsies were obtained at 15 cm. The scope was retroflexed in the rectum visualizing some internal hemorrhoids. The scope was straightened and withdrawn from the patient. She tolerated the procedure well and was returned to recovery area in stable condition. IMPRESSION: 1. Diverticulosis just proximal to stoma. 2. 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 3. Internal and external hemorrhoids. PLAN: The results of the biopsies will be checked. She does describe that she has been having some mucus discharge from the rectum recently. I do not think this will need any specific treatment and she is scheduled to have the colostomy reversed in October and hopefully that will take care of the diversion colitis. Given today's otherwise negative colonoscopy in regard to polyps and her age, I do not think she would need any further screening colonoscopies. She will see me on a p.r.n. basis. This has been discussed with her . MD SHIVA Yoon/BEVERLY / [id number]
== END 2024-09-24 11:16 | disposition home or self-care (01) ==
PROVIDERS: PCP Nurse Practitioner Family; Visit Provider Internal Medicine
PROC: 0DJD8ZZ Inspection of Lower Intestinal Tract, Via Natural or Artificial Opening Endoscopic (ICD-10-PCS; CPT 45378; principal; 2024-09-24 09:10)
DX: Z12.11 Encounter for screening for malignant neoplasm of colon (principal); K57.30 Diverticulosis of large intestine without perforation or abscess without bleeding; Z87.19 Personal history of other diseases of the digestive system; K52.89 Other specified noninfective gastroenteritis and colitis; K64.8 Other hemorrhoids; K64.4 Residual hemorrhoidal skin tags; Z90.49 Acquired absence of other specified parts of digestive tract; Z93.3 Colostomy status; Z85.3 Personal history of malignant neoplasm of breast; Z92.3 Personal history of irradiation; Z90.13 Acquired absence of bilateral breasts and nipples; I10 Essential (primary) hypertension; E78.5 Hyperlipidemia, unspecified; Z79.899 Other long term (current) drug therapy; Z88.1 Allergy status to other antibiotic agents; Z88.2 Allergy status to sulfonamides; Z98.890 Other specified postprocedural states
CPT/HCPCS: 44388; 45331; 88305; J2371; J2704